=== PATIENT | female | born 1995 | race Two or more races ===

== ENCOUNTER 2019-01-29 07:05 | Emergency (ER) | payer BC ==
[~2019-01-29] VITALS: Ht 175.3 cm; Wt 56.0 kg
[2019-01-29] MEDS ORDERED: IBUPROFEN 800MG TABLET PO ONE (08:30)
[2019-01-29 08:48] LABS: CHLORIDE 106 mEq/L (98-107)
[2019-01-29 09:24] LABS: BASOPHILS % 0.3 % (0.0-2.0); EOSINOPHILS % 0.4 % (0.0-5.0); HEMATOCRIT. 43.1 % (36.0-48.0); HEMOGLOBIN. 14.5 g/dL (12.0-16.0); LYMPHOCYTES % 8.1 % (20.0-50.0); MEAN CORPUSCULAR HEMOGLOBIN 30.2 pg (28.0-32.0); MEAN CORPUSCULAR VOLUME 89.8 fL (81.0-99.0); MEAN PLATELET VOLUME 7.5 fl (7.4-10.4); MONOCYTES % 7.2 % (2.0-8.0); PLATELET 375 x1000/uL (130-400); RED CELL DISTRIBUTION WIDTH 13.4 % (11.6-14.6)
[2019-01-29 09:56] LABS: CLARITY URINE CLOUDY (CLEAR); COLOR URINE YELLOW (YELLOW); KETONES URINE NEGATIVE (NEGATIVE); LEUKOCYTE ESTERASE URINE 3+ (NEGATIVE); NITRITE URINE NEGATIVE (NEGATIVE); OCCULT BLOOD URINE 2+ (NEGATIVE); PH URINE 7.5 (4.5-8.0); PROTEIN URINE NEGATIVE (NEGATIVE); SPECIFIC GRAVITY URINE 1.004 (1.005-1.030); UROBILINOGEN URINE 0.2 E.U./dL (0.2-1.0)
[2019-01-29] MEDS ORDERED: CEFTRIAXONE SODIUM 250 MG/VIAL IM ONE (12:15)
[2019-01-29] MEDS ORDERED: AZITHROMYCIN 500 MG TABLET PO SCH (12:15)
[2019-01-29 12:20] VITALS: BP 115/78
[2019-01-31 05:17] LABS: CHLAMYDIA TRACHOMATIS NAA Negative (Negative); NEISSERIA GONORRHOEAE NAA Negative (Negative)
== END 2019-01-29 12:42 | disposition home or self-care (01) ==
LOC: ER 07:05
DX: N39.0 Urinary tract infection, site not specified (principal); F12.10 Cannabis abuse, uncomplicated
CPT/HCPCS: 36415; 76830; 76856; 80053; 81003; 81025; 85025; 87077; 87086; 87186; 87210; 87491; 87591; 96372; 99284; J0696; A4315